=== PATIENT | male | born 1985 | race Caucasian/White ===

== ENCOUNTER 2022-02-07 08:51 | Emergency (ER) | payer MEDICAID, SELFPAY ==
[2022-02-07 09:06] VITALS: BP 135/80; PULSE 90; RESP 16; TEMP 36.8; O2SAT 98; BMI 25.1
--- NOTE | 2022-02-07 09:07 | W.ED.SYNCOPE ---
HPI - Syncope General: Chief Complaint: Syncope Stated Complaint: SYNCOPE Time Seen by Provider: 02/07/22 08:57 Source: patient Mode of arrival: EMS Limitations: no limitations History of Present Illness: 36-year-old male presents emergency room via EMS after syncopal episode at a local rehab center. Patient states he is standing and just fell. He believes he struck his head behind his left ear he is not on any anticoagulants there was brief loss of consciousness. No laceration or hematoma he has a sauce grate behind the ears but that may be from shaving his head which she does cosmetically. He tells me he has been on antipsychotic medications for an extended period time recently thought to have developed tardive dyskinesia and he was switched from Haldol to Abilify. He feels the Abilify is working well. He does not have any tremor or abnormal movements now. Denies any chest pain or abdominal pain denies any palpitations rapid heart rate or irregular heart rate. 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) Treatments prior to arrival: IV fluids Review of Systems Const: Denies: fever(s), chills, fatigue or malaise ENMT: Denies: throat pain, ear or mastoid pain, nasal discharge or nasal congestion Card: Denies: chest pain, palpitations or lightheadedness Resp: Denies: dyspnea, productive cough or non-productive cough GI: Denies: abdominal pain or nausea : Denies: flank pain, dysuria, urinary frequency or urinary urgency Skin/Breast: Denies: rash or pruritus Neuro: Denies: headache(s) or vertigo PFS ED PFSH: Medical History (Updated 02/17/22 @ 20:33 by Thuan Benjamin DO) No significant past medical history Surgical History (Updated 02/17/22 @ 20:33 by Thuan Benjamin DO) No significant past surgical history Social History (Updated 02/17/22 @ 20:33 by Thuan Benjamin DO) Smoking and tobacco status: current every day smoker Physical Exam Const: COMMON NORMALS: no acute distress GENERAL APPEARANCE: cooperative and comfortable ORIENTATION/CONSCIOUSNESS: Yes awake, Yes oriented to person, Yes oriented to place and Yes oriented to time HENMT: COMMON NORMALS: normocephalic, atraumatic, hearing grossly normal bilaterally, external ears normal, EAC's normal, TM's normal bilaterally, Normal nasal mucous membranes and turbinates present, moist oral mucous membranes and oropharynx normal HEAD & SCALP: normocephalic and atraumatic NOSE: Normal nasal mucous membranes and turbinates present EXTERNAL EAR: Yes external ears normal EXTERNAL AUDITORY CANAL: EAC's normal TYMPANIC MEMBRANE: TM's normal bilaterally Eye: COMMON NORMALS: Equal, round and reactive pupils present, EOMs intact bilaterally, conjunctivae normal and no scleral icterus CONJUNCTIVA: Yes conjunctivae normal PUPIL: Yes Equal, round and reactive pupils present Neck/C-Spine: COMMON NORMALS: full ROM, no lymphadenopathy, supple and no JVD Lymph: LYMPHATIC: no lymphadenopathy noted and no lymphedema noted Resp: COMMON NORMALS: normal respiratory effort, No retractions, No use of accessory muscles and clear to auscultation bilaterally AUSCULTATION: clear to auscultation bilaterally Cardio: COMMON NORMALS: no JVD, regular rate, regular rhythm and No murmurs present (Cardio) RATE: regular rate RHYTHM: regular rhythm GI: COMMON NORMALS: Soft to palpation and No hepatosplenomegaly present AUSCULTATION: Yes normoactive bowel sounds PALPATION: Yes Soft to palpation, No Tenderness to palpation present (GI), No Guarding due to palpation present (GI) and Yes No hepatosplenomegaly present Extremity: COMMON NORMALS: normal to inspection, capillary refill normal, no clubbing, cyanosis or edema, no calf tenderness and no pedal edema Neuro: SENSORIUM/ORIENTATION: Yes oriented to person, Yes oriented to place and Yes oriented to time Skin: COMMON NORMALS: no rashes or lesions noted GENERAL SKIN EXAM: no rashes or lesions noted Course Vital Signs: Vital signs: Vital Signs Temperature 98.3 F 02/07/22 09:06 Pulse Rate 84 02/07/22 13:27 Respiratory Rate 17 02/07/22 13:27 Blood Pressure 108/68 02/07/22 13:27 Pulse Oximetry 98 02/07/22 13:27 Oxygen Delivery Me thod 02/07/22 13:27 MDM - Syncope Medical Decision Making Improved with fluids reviewed with patient continue medications discharged to [facility]. Medical Records I reviewed the patient's medical records. Lab Data I reviewed the patient's lab results. : 02/07/22 09:04 02/07/22 09:[address] 02/07/22 09:15 IMPRESSION: No acute intracranial abnormality. Laboratory Results WBC 9.4 10^3/uL (4.0-10.0) 02/07/22 09:04 RBC 4.95 10^6/uL (4.1-5.3) 02/07/22 09:04 Hgb 13.1 g/dL (11.7-16.6) 02/07/22 09:04 Hct 41.8 % (42.0-52.0) L 02/07/22 09:04 MCV 84.4 fl (80-94) 02/07/22 09:04 MCH 26.5 pg (28.0-34.0) L 02/07/22 09:04 MCHC 31.3 g/dL (30.0-36.0) 02/07/22 09:04 RDW 15.0 % (12.1-15.1) 02/07/22 09:04 Plt Count 276 10^3/cmm (130-400) 02/07/22 09:04 MPV 11.1 fL (7.4-10.4) H 02/07/22 09:04 Neut % (Auto) 65.3 % 02/07/22 09:04 Lymph % (Auto) 28.2 % 02/07/22 09:04 [place] % (Auto) 3.2 % 02/07/22 09:04 Eos % (Auto) 2.3 % 02/07/22 09:04 Baso % (Auto) 0.5 % 02/07/22 09:04 Neut # (Auto) 6.16 10^3/uL (1.8-7.7) 02/07/22 09:04 Lymph # (Auto) 2.7 10^3/uL (0.8-4.8) 02/07/22 09:04 [place] # (Auto) 0.3 10^3/uL (0.2-0.9) 02/07/22 09:04 Eos # (Auto) 0.2 10^3/uL (0.0-0.8) 02/07/22 09:04 Baso # (Auto) 0.1 10^3/uL (0.0-0.1) 02/07/22 09:04 Nucleated RBC % (auto) 0 % 02/07/22 09:04 Nucleated RBCs # 0.0 /100WBC 02/07/22 09:04 Sodium 141 mmol/L (136-145) 02/07/22 09:04 Potassium 4.5 mmol/L (3.5-5.1) 02/07/22 09:04 Chloride 104 mmol/L (98-107) 02/07/22 09:04 Carbon Dioxide 27 mmol/L (22-29) 02/07/22 09:04 Anion Gap 14.5 (5-19) 02/07/22 09:04 BUN 10 mg/dL (6-20) 02/07/22 09:04 Creatinine 0.9 mg/dL (0.7-1.2) 02/07/22 09:04 GFR Calculation 94.4 mL/min (90-130) 02/07/22 09:04 Glucose 99 mg/dL (65-115) 02/07/22 09:04 Calculated Osmolality 291 mOsm/kg (285-295) 02/07/22 09:04 Calcium 9.1 mg/dL (8.5-10.5) 02/07/22 09:04 Total Bilirubin 0.2 mg/dL (0.15-1.2) 02/07/22 09:04 AST 34 U/L (0-40) 02/07/22 09:04 ALT 58 U/L (0-41) H 02/07/22 09:04 Alkaline Phosphatase 83 U/L (40-130) 02/07/22 09:04 Total Protein 6.5 g/dL (6.6-8.7) L 02/07/22 09:04 Albumin 3.9 g/dL (3.5-5.2) 02/07/22 09:04 Globulin 2.6 g/dL (1.3-4.6) 02/07/22 09:04 Urine Color Yellow (Yellow) 02/07/22 09:37 Urine Appearance Clear (CLEAR) 02/07/22 09:37 Urine pH 5 (5-7) 02/07/22 09:37 Ur Specific [place] 1.015 (1.005-1.030) 02/07/22 09:37 Urine Protein Neg (Negative) 02/07/22 09:37 Urine Glucose (UA) Norm (Normal) 02/07/22 09:37 Urine Ketones Negative (Negative) 02/07/22 09:37 Urine Blood Neg (Negative) 02/07/22 09:37 Urine Nitrate Negative (Negative) 02/07/22 09:37 Urine Bilirubin Neg (Negative) 02/07/22 09:37 Urine Urobilinogen Norm mg/dL (Negative) 02/07/22 09:37 Ur Leukocyte Esterase Negative (Negative) 02/07/22 09:37 Discharge Plan Discharge Clinical Impression: Syncope due to orthostatic hypotension Prescriptions: No Action hydroxyzine pamoate 50 mg Capsule 50 mg PO TID PRN (Reason: Anxiety) trazodone 150 mg Tablet 150 mg PO BEDTIME buspirone 15 mg Tablet 15 mg PO BEDTIME aripiprazole 10 mg Tablet 10 mg PO DAILY Discharge Orders: Discharge ED (Routine); Ordered 02/07/22 Ordered By: Thuan Benjamin Discharge Diet: Usual diet Discharge Activity: Increase activity as tolerated Patient Instructions: Opioid Safety Activity Restrictions/Additional Instructions: Follow-up with your primary care doctor as needed. Increase p.o. fluid intake Coding Level of Care Code ED Sap Director for [place] [facility]
[2022-02-07 09:13] LABS: Basophils # 0.1 10^3/uL (0.0-0.1); Basophils % 0.5 %; Eosinophils # 0.2 10^3/uL (0.0-0.8); Eosinophils % 2.3 %; Hematocrit 41.8 % (42.0-52.0); Hemoglobin 13.1 g/dL (11.7-16.6); Lymphocytes # 2.7 10^3/uL (0.8-4.8); Lymphocytes % 28.2 %; Mean Corpuscular HGB Conc 31.3 g/dL (30.0-36.0); Mean Corpuscular Hemoglobin 26.5 pg (28.0-34.0); Mean Corpuscular Volume 84.4 fl (80-94); Mean Platelet Volume 11.1 fL (7.4-10.4); Monocytes # 0.3 10^3/uL (0.2-0.9); Monocytes % 3.2 %; Neutrophils # 6.16 10^3/uL (1.8-7.7); Neutrophils % 65.3 %; Nucleated Red Blood Cells % 0 %; Platelet Count 276 10^3/cmm (130-400); Red Blood Count 4.95 10^6/uL (4.1-5.3); White Blood Count 9.4 10^3/uL (4.0-10.0)
--- NOTE | 2022-02-07 09:15 | CTR_ITS ---
PROCEDURE INFORMATION: Exam: CT Head Without Contrast Exam date and time: 02/07/2022 9:27 AM Age: 36 years old Clinical indication: Fall with blunt trauma. Fall with closed head injury. TECHNIQUE: Imaging protocol: Computed tomography of the head without contrast. Radiation optimization: All CT scans at this facility use at least one of these dose optimization techniques: automated exposure control; mA and/or kV adjustment per patient size (includes targeted exams where dose is matched to clinical indication); or iterative reconstruction. COMPARISON: No relevant prior studies available. RADIATION DOSE METRICS: Total DLP (mGy-cm): 1094.48 FINDINGS: Brain: No acute intracranial hemorrhage. No mass, mass effect or midline shift. The subcortical and periventricular white matter is normal in attenuation. The posterior fossa is grossly unremarkable; however, it is partially obscurred by beam hardening artifact. Cerebral ventricles: The ventricles are normal in configuration. Paranasal sinuses: The visualized paranasal sinuses are clear. Mastoid air cells: No mastoid effusion. Orbital cavities: The visualized orbits are unremarkable. Bones/joints: No acute fracture is seen. Soft tissues: No significant scalp soft tissue swelling. Vasculature: There is no evidence of acute large vessel infarct. CT/CT head wo con* [id number] IMPRESSION: No acute intracranial abnormality.
--- NOTE | 2022-02-07 09:16 | ECG_ITS ---
[facility] Test Date: 2022-02-07 Pat Name: Pedro Verma Department: Room: Gender: Male [employer]: : 1985 Requested By: Thuan Blue Order Number: [id number] Leo MD: Supriya Sibley M.D. Measurements Intervals [place] Rate: 86 P: 66 CO: 156 QRS: 79 QRSD: 97 T: 53 QT: 355 QTc: 426 Interpretive Statements SINUS RHYTHM No previous ECG available for comparison Electronically Signed On 02-07-2022 13:12:40 CDT by Supriya Sibley M.D. [email or web address]
[2022-02-07] MEDS: sodium chloride 0.9% 1,000 ML 999 ML IV ×2 (09:19→11:52)
[2022-02-07 09:40] VITALS: BP 123/74; PULSE 85; RESP 18; O2SAT 98
[2022-02-07 09:42] LABS: Add Urine Microscopic? NO; Charge for UA Resulting for Rev
[2022-02-07 09:44] LABS: Albumin Level 3.9 g/dL (3.5-5.2); Alkaline Phosphatase 83 U/L (40-130); Blood Urea Nitrogen 10 mg/dL (6-20); Calcium 9.1 mg/dL (8.5-10.5); Carbon Dioxide 27 mmol/L (22-29); Chloride 104 mmol/L (98-107); Globulin 2.6 g/dL (1.3-4.6); Glomerular Filtration Rate 94.4 mL/min (90-130); Glucose 99 mg/dL (65-115); Osmolality Calculated 291 mOsm/kg (285-295); Sodium 141 mmol/L (136-145); Total Bilirubin 0.2 mg/dL (0.15-1.2); Total Protein 6.5 g/dL (6.6-8.7)
[2022-02-07 09:47] LABS: Alanine Aminotransferase 58 U/L (0-41); Anion Gap 14.5 (5-19); Aspartate Amino Transferase 34 U/L (0-40); Potassium 4.5 mmol/L (3.5-5.1)
[2022-02-07 09:49] LABS: Bilirubin Urine Neg (Negative); Blood Urine Neg (Negative); Glucose Urine UA Norm (Normal); Ketones Urine Negative (Negative); Leukocyte Esterase Urine Negative (Negative); Nitrate Urine Negative (Negative); Protein Urine Neg (Negative); Specific Gravity, Urine 1.015 (1.005-1.030); Urine Appearance Clear (CLEAR); Urine Color Yellow (Yellow); Urobilinogen Urine Norm (Negative); pH Urine 5 (5-7)
[2022-02-07 11:47] VITALS: BP 108/71; BP 116/69; BP 125/85; PULSE 125; PULSE 92; PULSE 97
[2022-02-07 12:35] VITALS: BP 93/53; PULSE 86; RESP 20; O2SAT 98
[2022-02-07 13:27] VITALS: BP 108/68; PULSE 84; RESP 17; O2SAT 98
== END 2022-02-07 13:28 | disposition home or self-care (01) ==
PROVIDERS: Emergency Provider Family Medicine
DX: I95.1 Orthostatic hypotension (principal); F17.210 Nicotine dependence, cigarettes, uncomplicated
CPT/HCPCS: 70450; 80053; 81003; 85025; 93005; 96360; 96361; 99285; J7030